=== PATIENT | female | born 1965 | race African-American/Black ===

== ENCOUNTER 2019-06-10 21:42 | Inpatient (IN) | payer MEDICARE ==
[~2019-06-10] VITALS: Ht 157.5 cm; Wt 109.8 kg
[2019-06-11] VITALS (7 sets, daily range): BP systolic 160–223; BP diastolic 82–93
[2019-06-11 00:07] LABS: BASOPHILS % 0.6 % (0.0-2.0); EOSINOPHILS % 6.2 % (0.0-5.0); HEMOGLOBIN. 10.8 g/dL (12.0-16.0); LYMPHOCYTES % 38.5 % (20.0-50.0); MEAN CORPUSCULAR HEMOGLOBIN 31.8 pg (28.0-32.0); MEAN CORPUSCULAR VOLUME 93.9 fL (81.0-99.0); MEAN PLATELET VOLUME 8.1 fl (7.4-10.4); MONOCYTES % 5.5 % (2.0-8.0); NEUTROPHILS % 49.2 % (40.0-76.0); PLATELET 343 x1000/uL (130-400); RED BLOOD CELL COUNT 3.41 mill/uL (4.2-5.4); RED CELL DISTRIBUTION WIDTH 16.9 % (11.6-14.6)
[2019-06-11 00:09] LABS: CHLORIDE 111 mEq/L (98-107)
[2019-06-11 00:11] LABS: INR 0.9; PROTHROMBIN TIME 9.4 sec (9.6-11.0)
[2019-06-11] MEDS ORDERED: SODIUM CHLORIDE 0.9% 1,000 ML IV ONE (02:43)
[2019-06-11] MEDS ORDERED: DOCUSATE SODIUM 100MG CAPSULE PO PRN (11:15)
[2019-06-11] MEDS ORDERED: ONDANSETRON HCL 4MG/2ML INJ IV PRN (11:15)
[2019-06-11] MEDS ORDERED: ACETAMINOPHEN 325MG TABLET PO PRN (11:15)
[2019-06-11] MEDS ORDERED: AMLODIPINE 10MG TABLET PO SCH (11:15)
[2019-06-11] MEDS ORDERED: MAGNESIUM/ALUMINUM HYDROXIDE/SIMETHICONE 30ML UDC PO PRN (11:15)
[2019-06-11] MEDS: SODIUM CHLORIDE 0.45% 1,000 ML IV SCH (11:15)
[2019-06-11] MEDS ORDERED: GABA-290 PO (11:22)
[2019-06-11] MEDS ORDERED: IBUP-2030 PO (11:27)
[2019-06-11] MEDS ORDERED: FURO20TA4 PO (11:34)
[2019-06-11] MEDS ORDERED: RANI150C12 PO (11:34)
[2019-06-11] MEDS ORDERED: METF-416 PO (11:34)
[2019-06-11] MEDS ORDERED: CLON0.2T PO (11:36)
[2019-06-11] MEDS ORDERED: ATEN-42 PO (11:37)
[2019-06-11] MEDS ORDERED: VENL-179 PO (11:39)
[2019-06-11] MEDS ORDERED: PENT1TAB3 PO (11:41)
[2019-06-11] MEDS: CLONIDINE 0.1MG TABLET PO PRN ×2 (13:20→17:33)
[2019-06-11] MEDS: ENOXAPARIN 40MG/0.4ML SYR SUBCUT SCH (13:21)
[2019-06-11] MEDS ORDERED: TRAMADOL 50MG TABLET PO PRN (13:45)
[2019-06-11] MEDS ORDERED: LIDOCAINE 5% PATCH TOP SCH (13:45)
[2019-06-11] MEDS: BLOOD SUGAR DIAGNOSTIC STRIP TEST SCH ×2 (13:45→21:00)
[2019-06-11] MEDS ORDERED: HYDRALAZINE HCL 25MG TABLET PO SCH ×2 (14:00)
[2019-06-11] MEDS ORDERED: DEXTROSE 50% WATER 50ML SYRINGE IV PRN ×2 (14:00)
[2019-06-11] MEDS: HYDRALAZINE HCL 50MG TABLET PO SCH ×2 (15:00→22:09)
[2019-06-11] MEDS: LIDOCAINE 5% PATCH TOP SCH ×2 (15:30→17:32)
[2019-06-11 15:59] LABS: CREATINE KINASE 349 IU/L (26-192)
[2019-06-11 16:00] LABS: CLARITY URINE CLEAR (CLEAR); COLOR URINE YELLOW (YELLOW); KETONES URINE NEGATIVE (NEGATIVE); LEUKOCYTE ESTERASE URINE NEGATIVE (NEGATIVE); NITRITE URINE NEGATIVE (NEGATIVE); OCCULT BLOOD URINE NEGATIVE (NEGATIVE); PROTEIN URINE TRACE (NEGATIVE); SPECIFIC GRAVITY URINE 1.011 (1.005-1.030); UROBILINOGEN URINE 0.2 E.U./dL (0.2-1.0)
[2019-06-11 16:15] LABS: *AMPHETAMINES SCREEN URINE NEGATIVE (NEGATIVE); *BARBITURATES SCREEN URINE NEGATIVE (NEGATIVE); *BENZODIAZEPINES SCREEN URINE NEGATIVE (NEGATIVE); *COCAINE SCREEN URINE NEGATIVE (NEGATIVE)
[2019-06-11 16:16] LABS: METHADONE URINE SCREEN NEGATIVE (NEGATIVE); OPIATES URINE SCREEN NEGATIVE (NEGATIVE)
[2019-06-11 16:17] LABS: CANNABINOID URINE SCREEN NEGATIVE (NEGATIVE); PHENCYCLIDINE URINE SCREEN NEGATIVE (NEGATIVE)
[2019-06-11] MEDS: INSULIN LISPRO 100 UNITS/ML SUBCUT SCH ×2 (17:33→21:00)
[2019-06-11] MEDS: NIFEDIPINE XL 60MG TAB PO SCH (21:54)
[2019-06-12] VITALS: BP 197/93
[2019-06-12] MEDS: SODIUM CHLORIDE 0.45% 1,000 ML IV SCH ×3 (00:35→22:16)
[2019-06-12] MEDS: HYDROCODONE/ACETAMINOPHEN 5/325MG TABLET PO PRN ×2 (01:45→20:45)
[2019-06-12 04:00] VITALS: BP 164/83
[2019-06-12] MEDS: CLONIDINE 0.1MG TABLET PO PRN (05:01)
[2019-06-12] MEDS: HYDRALAZINE HCL 50MG TABLET PO SCH (05:04)
[2019-06-12] MEDS: OMEPRAZOLE 20MG CAPSULE EXTENDED RELEASE PO SCH (06:40)
[2019-06-12] MEDS: BLOOD SUGAR DIAGNOSTIC STRIP TEST SCH ×4 (06:44→20:33)
[2019-06-12] MEDS: INSULIN LISPRO 100 UNITS/ML SUBCUT SCH ×4 (06:45→20:46)
[2019-06-12 07:22] LABS: BASOPHILS % 1.1 % (0.0-2.0); EOSINOPHILS % 5.5 % (0.0-5.0); HEMATOCRIT. 33.1 % (36.0-48.0); HEMOGLOBIN. 11.3 g/dL (12.0-16.0); LYMPHOCYTES % 29.8 % (20.0-50.0); MEAN CORPUSCULAR HEMOGLOBIN 31.6 pg (28.0-32.0); MEAN CORPUSCULAR VOLUME 92.6 fL (81.0-99.0); MEAN PLATELET VOLUME 8.6 fl (7.4-10.4); MONOCYTES % 9.5 % (2.0-8.0); NEUTROPHILS % 54.1 % (40.0-76.0); PLATELET 345 x1000/uL (130-400); RED BLOOD CELL COUNT 3.58 mill/uL (4.2-5.4); RED CELL DISTRIBUTION WIDTH 16.4 % (11.6-14.6)
[2019-06-12] MEDS: ENOXAPARIN 40MG/0.4ML SYR SUBCUT SCH (09:18)
[2019-06-12] MEDS: NIFEDIPINE XL 60MG TAB PO SCH ×2 (09:19→20:39)
[2019-06-12 09:31] LABS: CHLORIDE 109 mEq/L (98-107)
[2019-06-12 09:38] LABS: PHOSPHORUS 3.4 mg/dL (2.5-4.9)
[2019-06-12 09:39] LABS: LDL CHOLESTEROL 143 mg/dL (5-100)
[2019-06-12 09:41] LABS: HDL CHOLESTEROL 41 mg/dL (40-59)
[2019-06-12 11:57] VITALS: BP 161/91
[2019-06-12] MEDS: CLONIDINE 0.1MG TABLET PO SCH (14:00)
[2019-06-12] MEDS: HYDRALAZINE HCL 100MG TABLET PO SCH ×2 (15:36→20:57)
[2019-06-12 16:00] VITALS: BP 140/80
[2019-06-12 20:00] VITALS: BP 165/93
[2019-06-13] VITALS: BP 186/92
[2019-06-13] MEDS: HYDRALAZINE HCL 100MG TABLET PO SCH ×2 (00:20→06:09)
[2019-06-13] MEDS: CLONIDINE 0.1MG TABLET PO SCH ×2 (00:20→06:09)
[2019-06-13 04:00] VITALS: BP 137/84
[2019-06-13] MEDS: INSULIN LISPRO 100 UNITS/ML SUBCUT SCH ×2 (06:17→12:27)
[2019-06-13] MEDS: BLOOD SUGAR DIAGNOSTIC STRIP TEST SCH ×2 (06:17→12:26)
[2019-06-13] MEDS: OMEPRAZOLE 20MG CAPSULE EXTENDED RELEASE PO SCH (06:22)
[2019-06-13 07:34] LABS: BASOPHILS % 0.9 % (0.0-2.0); EOSINOPHILS % 1.7 % (0.0-5.0); HEMATOCRIT. 35.4 % (36.0-48.0); HEMOGLOBIN. 11.9 g/dL (12.0-16.0); LYMPHOCYTES % 34.1 % (20.0-50.0); MEAN CORPUSCULAR HEMOGLOBIN 31.2 pg (28.0-32.0); MEAN PLATELET VOLUME 8.3 fl (7.4-10.4); MONOCYTES % 11.4 % (2.0-8.0); NEUTROPHILS % 51.9 % (40.0-76.0); PLATELET 368 x1000/uL (130-400); RED CELL DISTRIBUTION WIDTH 16.5 % (11.6-14.6)
[2019-06-13 08:00] VITALS: BP 140/77
[2019-06-13] MEDS ORDERED: POTASSIUM CHLORIDE 20MEQ TABLET SR PO NR ×2 (09:00→12:00)
[2019-06-13] MEDS: LIDOCAINE 5% PATCH TOP SCH (09:00)
[2019-06-13] MEDS ORDERED: ENOXAPARIN 30MG/0.3ML SYR SUBCUT SCH (09:00)
[2019-06-13 09:06] LABS: COMPLEMENT C3 141 mg/dL (82-167)
[2019-06-13] MEDS: NIFEDIPINE XL 60MG TAB PO SCH (09:18)
[2019-06-13] MEDS ORDERED: POTASSIUM CHLORIDE INJ 40 MEQ in DEXT 5% WATER 500 ML IV ONE (11:00)
[2019-06-13 12:00] VITALS: BP 135/75
[2019-06-13] MEDS ORDERED: LIDO700A30 TOP (12:38)
[2019-06-13] MEDS ORDERED: CLON0.1T14 PO (12:38)
[2019-06-13] MEDS ORDERED: HYDR100T26 PO (12:38)
[2019-06-13] MEDS ORDERED: NIFE60TA64 PO (12:38)
[2019-06-13 13:25] VITALS: BP 135/76
[2019-06-13 15:10] LABS: ANTI-NUCLEAR ANTIBODIES DIRECT Negative (Negative)
== END 2019-06-13 13:51 | disposition home or self-care (01) | DRG 682 ==
LOC: ER 21:42 → 8WST 06-11 02:43 → EDBEDREQTM 06-11 02:44 → EDBEDREQDT 06-11 02:44 → EDBEDREQ 06-11 02:44 → ENRESERV 06-11 04:54
PROVIDERS: ADMIT Family Medicine Adult Medicine; ATTEND Family Medicine Adult Medicine
DX: I12.9 Hypertensive chronic kidney disease with stage 1 through stage 4 chronic kidney disease, or unspecified chronic kidney disease (principal); N17.0 Acute kidney failure with tubular necrosis; E87.6 Hypokalemia; E28.2 Polycystic ovarian syndrome; M54.9 Dorsalgia, unspecified; G89.29 Other chronic pain; R00.1 Bradycardia, unspecified; D64.9 Anemia, unspecified; E11.22 Type 2 diabetes mellitus with diabetic chronic kidney disease; N18.9 Chronic kidney disease, unspecified; T39.315A Adverse effect of propionic acid derivatives, initial encounter; T38.3X5A Adverse effect of insulin and oral hypoglycemic [antidiabetic] drugs, initial encounter; E78.00 Pure hypercholesterolemia, unspecified; E78.5 Hyperlipidemia, unspecified; Z96.649 Presence of unspecified artificial hip joint; Z88.8 Allergy status to other drugs, medicaments and biological substances; F17.200 Nicotine dependence, unspecified, uncomplicated; Z82.49 Family history of ischemic heart disease and other diseases of the circulatory system; Y92.89 Other specified places as the place of occurrence of the external cause
CPT/HCPCS: 36415; 71045; 76770; 80048; 80061; 80305; 81003; 82550; 82962; 83036; 83735; 83880; 84100; 84132; 84443; 84484; 86038; 86160; 86850; 86900; 93005; 93306; 93970; 99285; C1893; J1650; J3480; J7030; J7060

== ENCOUNTER 2019-08-16 18:56 | Emergency (ER) | payer MEDICARE, MEDICAID ==
[~2019-08-16] VITALS: Ht 160 cm; Wt 109.0 kg
[~2019-08-16 18:56] MED LIST: CLON0.1T14 PO; GABA-290 PO; HYDR100T26 PO; LIDO700A30 TOP; NIFE60TA64 PO; RANI150C12 PO; VENL-179 PO
[2019-08-16] MEDS ORDERED: KETOROLAC 60MG/2ML VIAL IM ONE (23:15)
[2019-08-16] MEDS ORDERED: MORPHINE SULFATE 10 MG/ML CPJ IM ONE (23:15)
[2019-08-17 00:32] VITALS: BP 112/74
== END 2019-08-17 00:33 | disposition home or self-care (01) ==
LOC: ER 18:56
DX: M54.5 Low back pain (principal); G89.29 Other chronic pain; E78.00 Pure hypercholesterolemia, unspecified; I10 Essential (primary) hypertension; Z96.649 Presence of unspecified artificial hip joint; Z79.899 Other long term (current) drug therapy
CPT/HCPCS: 96372; 99283; J1885; J2270